=== PATIENT | female | born 1960 | race Caucasian/White ===

== ENCOUNTER 2018-12-11 11:12 | Emergency (ER) | payer BC, OTHER ==
[~2018-12-11] VITALS: Ht 165.1 cm; Wt 65.8 kg
--- OUTSIDE RECORDS SUMMARY | 2018-12-11 11:20 | XMS REPORT ---
Author Author ALPHONSO PEACOCK Organization [facility] Address [address] [place] [address] Care Team Providers Care Results Engineer Name Role Phone ALPHONSO PEACOCK Unavailable PROBLEMS Unknown Problems ALLERGIES No Information ENCOUNTERS Encounter Location Date Diagnosis [facility] [address] [facility] [id number] [address] May, Exposure to hepatitis C Z20.5 IMMUNIZATIONS No Known Immunizations SOCIAL HISTORY Never Assessed REASON FOR VISIT Lab PLAN OF CARE VITAL SIGNS MEDICATIONS Unknown Medications RESULTS Name Result Date Reference Range HEP C ANTIBODY 2017-05-09 HEPATITIS C ANTIBODY NON-REACTIVE NON-REACTIVE SIGNAL TO CUT-OFF 0.07 <1.00 PROCEDURES Procedure Date Ordered Result Body Site HEPATITIS C AB TEST May 09, 2017 VENIPUNCT, ROUTINE* May 09, 2017 INSTRUCTIONS MEDICATIONS ADMINISTERED No Known Medications
--- NOTE | 2018-12-11 11:55 | NUR ---
Pt refused blood pressure.
[2018-12-11] MEDS ORDERED: HYDROcodone/APAP 7.5 MG/325 MG (LORTAB, LORCET PLUS) TABLET PO ONE (12:15)
--- NOTE | 2018-12-11 12:32 | Diagnostic Imaging Report ---
INDICATION: Wrist injury. Three views were obtained. FINDINGS: There is a comminuted intra-articular fracture of the distal radius. There is some dorsal angulation of the distal fracture fragment which is also displaced distally. There is a questionable small ulnar styloid fracture. Carpal bones are intact. IMPRESSION: Comminuted intra-articular displaced fracture of the distal radius as described with likely tiny ulnar styloid fracture as well. Dictated by: Dictated on workstation # [id number]
--- NOTE | 2018-12-11 13:59 | NUR ---
Pt taken warm blanket and fresh ice pack at this time.
[2018-12-11] MEDS ORDERED: HYDR-3816 PO (14:27)
--- NOTE | 2018-12-11 14:27 | ED Upper Extremity ---
General Chief Complaint: Upper Extremity Stated Complaint: R WRIST INJ / PAIN Nursing Triage Note: Pt to ED with injury to R wrist. 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 Wrist visibly swollen and appears displaced. Nursing Sepsis Screen: No Definite Risk Source: patient Exam Limitations: no limitations History of Present Illness Date Seen by Provider: Dec 11, 2018 Time Seen by Provider: 12:05 Initial Comments 58-year-old female who presents to the emergency room with complaints of right wrist pain after getting her wrists smashed between a gate and a trailer. She has moderate swelling and mild deformity to the right wrist. She is neurovascularly intact. Onset: just prior to arrival Pain/Injury Location: right wrist Method of Injury: direct blow Modifying Factors: Worse With Movement Allergies and Home Medications Allergies Uncoded Allergies: SULFA (Allergy, Unknown, 12/11/18) Home Medications Hydrocodone/Acetaminophen 1 Each Tablet, 1 TAB PO Q4H Prescribed by: BHUPINDER JOAQUIN on 12/11/18 1427 Patient Home Medication List Home Medication List Reviewed: Yes Review of Systems Constitutional: see HPI; No chills, No fever Musculoskeletal: see HPI, joint pain (right wrist pain) All Other Systems Reviewed Negative Unless Noted: Yes Past Ouferjw-Risyro-Qnmhwc Hx Past Med/Social Hx: Reviewed Nursing Past Med/Soc Hx Patient Social History Alcohol Use: Occasionally Uses Recreational Drug Use: No 2nd Hand Smoke Exposure: No Recent Foreign Travel: No Contact w/Someone Who Travel: No Recent Infectious Disease Expo: No Recent Hopitalizations: No Seasonal Allergies Seasonal Allergies: No Past Medical History Surgeries: Yes (double masectomy) Gallbladder, Orthopedic Respiratory: No Cardiac: Yes High Cholesterol, Hypertension Neurological: No Genitourinary: No Gastrointestinal: Yes Gastroesophageal Reflux Musculoskeletal: No Endocrine: No HEENT: No Cancer: Yes Breast Did You Recieve Any Treatments: Yes What Type of Treatment Did You: Chemotherapy, Radiation, Surgical Intervention Psychosocial: No Blood Disorders: No Family Medical History Reviewed Nursing Family Hx Physical Exam Vital Signs Vital Signs - First Documented 12/11/18 12/11/18 11:54 14:36 Temp 98.3 Pulse 82 Resp 18 B/P (MAP) 0/0 (0) Pulse Ox 97 O2 Delivery Room Air Capillary Refill : Less Than 3 Seconds Height, Weight, BMI Height: 5'5.00" Weight: 145lbs. oz. 65.389481yp; BMI Method:Stated General Appearance: WD/WN, no apparent distress Cardiovascular: normal peripheral pulses, regular rate, rhythm, no edema, no gallop, no JVD, no murmur Respiratory: chest non-tender, lungs clear, normal breath sounds, no respiratory distress, no accessory muscle use Wrist: Yes bone tenderness (right wrist), Yes deformity, Yes pain, Yes soft tissue tenderness, Yes swelling Neurologic/Tendon: normal sensation, normal motor functions, normal tendon functions, responds to pain, no evidence tendon injury Neurologic/Psychiatric: alert, normal mood/affect, oriented x 3 Skin: normal color, warm/dry Progress/Results/Core Measures Results/Orders My Orders Orders - BHUPINDER JOAQUIN Hydrocodone/Apap 7.5/325 Tab (Lortab 7. (12/11/18 12:15) Wrist, Right, 3 Views Or More (12/11/18 12:05) Medications Given in ED Vital Signs/I&O Progress Progress Note : Time: 14:25 Progress Note I have seen and evaluated the patient. I've informed her of her imaging studies. The case was discussed with Dr. Velazquez and he recommends placing the patient in a sugar tong splint and following up with his clinic on Thursday. The patient agrees with plan of care, plans for discharge, return precautions were given. The patient was placed in recommended splint and she remained neurovascularly intact post-application. Diagnostic Imaging Diagonstic Imaging: Xray Comments NAME: BASSAM [facility]ORNE [facility] REC#: [id number] PT STATUS: REG ER : 1960 PHYSICIAN: BHUPINDER JOAQUIN ADMIT DATE: 12/11/18/ER Signed Date of Exam: 12/11/18 WRIST, RIGHT, 3 VIEWS OR MORE INDICATION: Wrist injury. Three views were obtained. FINDINGS: There is a comminuted intra-articular fracture of the distal radius. There is some dorsal angulation of the distal fracture fragment which is also displaced distally. There is a questionable small ulnar styloid fracture. Carpal bones are intact. IMPRESSION: Comminuted intra-articular displaced fracture of the distal radius as described with likely tiny ulnar styloid fracture as well. Dictated by: Dictated on workstation # [id number] Dict: 12/11/18 1222 Trans: 12/11/18 1406 Interpreted by: DARVIN VELAZQUEZ MD Electronically signed by: DARVIN VELAZQUEZ MD 12/11/18 1406 Reviewed: Reviewed by Me Departure Impression Primary Impression: Distal end of ulna fracture, closed Disposition: 01 HOME, SELF-CARE Condition: Stable/Unchanged Departure-Patient Inst. Decision time for Depature: 14:25 Referrals: NO,LOCAL PHYSICIAN (PCP) Primary Care Physician MARIA VICTORIA VELAZQUEZ DO Patient Instructions: Wrist Fracture (DC) Add. Discharge Instructions: Wear the sling and splint at all times until you follow up with Dr. Velazquez. Call Thursday to confirm appointment time. Take medication as directed. For pain unrelieved by hydrocodone you may use Tylenol. Do not exceed your daily limit of Tylenol 4000 mg. Ice to the sore areas at 20 minute intervals. Return back to the emergency room for worsening symptoms or concerns as needed. All discharge instructions reviewed with patient and/or family. Voiced understanding. Scripts Hydrocodone/Acetaminophen (Hydrocodone-Acetamin 7.5-325) 1 Each Tablet 1 TAB PO Q4H for PAIN-MODERATE for 7 Days, #20 TAB Prov: BHUPINDER JOAQUIN 12/11/18 Copy Copies To 1: MARIA VICTORIA VELAZQUEZ TRAVIS Dec 11, 2018 14:27
[2018-12-11 14:36] VITALS: BP 0/0
== END 2018-12-11 14:36 | disposition home or self-care (01) ==
LOC: ER 11:15
DX: S52.571A Other intraarticular fracture of lower end of right radius, initial encounter for closed fracture (principal); S52.601A Unspecified fracture of lower end of right ulna, initial encounter for closed fracture; E78.00 Pure hypercholesterolemia, unspecified; I10 Essential (primary) hypertension; K21.9 Gastro-esophageal reflux disease without esophagitis; Z85.3 Personal history of malignant neoplasm of breast; Z92.21 Personal history of antineoplastic chemotherapy; Z88.2 Allergy status to sulfonamides; Z90.13 Acquired absence of bilateral breasts and nipples; W23.1XXA Caught, crushed, jammed, or pinched between stationary objects, initial encounter
CPT/HCPCS: 29125; 73110